=== PATIENT | male | born 1995 | race Two or more races ===

== ENCOUNTER 2022-08-30 05:27 | Emergency (ER) | payer OTHER, SELFPAY ==
--- NOTE | ~2022-08-30 | XR_ITS ---
EXAMINATION: XR HAND, LEFT CLINICAL INFORMATION: Pain in second finger COMPARISON: None TECHNIQUE: PA, lateral, and oblique views of the left hand. FINDINGS: There is linear calcification adjacent to the distal metadiaphysis of proximal phalanx of second finger on the ulnar side, measured approximately 0.4 cm long possibly related to an avulsion fragment of indeterminate age versus foreign body. There is mild focal soft tissue edema. The rest of bones and soft tissues are normal. No fracture. Alignment is anatomic. Joint spaces are maintained. No erosions or soft tissue calcifications. XR/XR hand LT 2V IMPRESSION: Questionably foreign body versus avulsion fragment adjacent to the distal metadiaphysis of proximal phalanx of second finger
[2022-08-30 06:01] VITALS: BP 125/68; PULSE 75; RESP 18; TEMP 36.4; O2SAT 100; BMI 20.7
--- NOTE | 2022-08-30 09:27 | ED_ITS ---
HPI - Extremity Problem General Chief complaint: Extremity Injury, Upper Stated complaint: finger inj/pain Time Seen by Provider: 08/30/22 08:31 Source: patient Mode of arrival: ambulatory Limitations: no limitations History of Present Illness HPI Narrative: 27-year-old male presenting to the ER with complaints of left index finger pain that he noticed today reports that he cannot completely straighten it. He re ports that he does not recall any injury. He does cracked his fingers often. He reports he does not work. He denies any paresthesias. He denies any edema or fevers or any other symptoms complaints or concerns at this time. MD Complaint: joint swelling and joint pain Onset (ago): day(s) (Started today) Pain Consistency: constant Location: left (Index finger) Quality: aching Radiation: none Relieving factors: nothing Exacerbating factors: range of motion and palpation Associated symptoms: denies other symptoms Related Data Previous Rx's Medication Instructions Recorded acetaminophen 500 mg tablet 1,000 mg PO QID PRN fever or pain 08/30/22 (Tylenol Extra Strength) #14 tabs ibuprofen 800 mg tablet 800 mg PO Q8H PRN pain #14 tabs 08/30/22 tramadol 50 mg tablet 50 mg PO Q8H PRN pain #14 tabs 08/30/22 Allergies Allergy/AdvReac Type Severity Reaction Status Date / Time No Known Allergies Allergy Unverified 07/24/20 16:13 Review of Systems Review of Systems: Constitutional : No Weight loss, No Fever, No Chills, No Night Sweats, No Fatigue, No Malaise ENT/Mouth : No Hearing loss, No Ear Pain, No Nasal Congestion, No Sinus Pain, No Hoarseness, No sore throat, No Rhinorrhea, No Swallowing Difficulty Eyes: No Eye Pain, No Swelling, No Redness, No Foreign Body, No Discharge, No Vision Changes Cardiovascular : No Chest Pain, No SOB, No Dyspnea on Exertion, No Orthopnea, No Edema, No Palpitations Respiratory : No Cough, No Sputum, No Wheezing, No Smoke Exposure, No Dyspnea Gastrointestinal : No Nausea, No Vomiting, No Diarrhea, No Constipation, No abdominal Pain, No Hematochezia, No Melena Genitourinary : no irregular bleeding, No Dysuria, No Urinary Frequency, No Hematuria, No Urinary Incontinence, No Urgency, No Flank Pain, No Urinary Flow Changes, No Hesitancy Musculoskeletal : + left index finger joint pain/swelling, No Myalgias Skin : No Skin Lesions, No rash Neuro : No Weakness, No Numbness, No Paresthesias, No Loss of Consciousness, No Dizziness, No Headache Psych : No Anxiety/Panic, No Depression, No SI/HI/AH/VH, No Social Issues, Heme/Lymph: No Bruising, No Bleeding,No Lymphadenopathy Endocrine : No Polyuria, No Polydipsia, No Temperature Intolerance Yes all other systems are reviewed and are negative [facility] Past Medical History Attestation statement: The following information was validated with the patient. Source: old records reviewed and nursing notes reviewed Social History Social History Advance Directives: No Advance Directives Information Provided: No Physical Exam Vital Signs: Vital Signs: Last Vital Signs Temp 97.5 F 08/30/22 06:01 Pulse 75 08/30/22 06:01 Resp 18 08/30/22 06:01 BP 125/68 08/30/22 06:01 Pulse Ox 100 08/30/22 06:01 O2 Del Method 08/30/22 06:01 BMI result Body Mass Index 20.7 vital signs have been reviewed as normal and appeared to be correct. Blood pressure normal Heart rate normal. Respiration rate normal. Temperature normal. Oxygen saturation normal. Appearance: Alert. Oriented X3. No acute distress. Head: Normal external exam. Normocephalic. Atraumatic. Eyes: PERRLA. EOMI. Conjunctiva and sclera normal. Eyelids normal. ENT: Pharynx normal. Uvula midline. Moist mucous membranes. Neck: Normal inspection. Neck supple. FROM. CVS: Normal heart rate and rhythm. Respiratory: No respiratory distress. Painless inspiration. Skin: Skin warm and dry. Normal skin color. Normal skin turgor. No rashes/lesions/lacerations noted. Extremities: To left hand index finger at the PIP patient has soft tissue swelling and tenderness palpation with limited range of motion although no ob vious ligamentous or tendon injury noted. He is able to flex and extend the finger. Otherwise all other extremities edema normal range of motion nontender. Neuro: Oriented X 3. No motor deficit. No sensory deficit. Reflexes normal. Normal steady gait. No focal neuro deficits noted. Vascular: + radial pulses/+ 2 distal pedal pulses/+2 dorsalis pedis b/l. Normal cap refill. No cyanosis noted to upper extremity nails and lower extremity toes nails. Course Course Course Narrative: X-ray obtained revealed possible avulsion fracture versus foreign body. When I reviewed the x-ray it appears like a possible avulsion fracture. Patient denies any recent injuries or recent falls therefore foreign body on likely. Will place in a finger splint treat symptomatic and instructed follow-up with orthopedics and PCP as needed. Patient understands agrees with this plan. MDM - Extremity (Nontraumatic) Medical Records Attestation: I reviewed the patient's medical records. Discharge Plan Discharge Clinical Impression: Closed fracture of phalanx of left index finger Patient Disposition: Home, Self-Care Instructions: Finger Fracture (ED) Prescriptions: New tramadol 50 mg tablet 50 mg PO Q8H PRN (Reason: pain) Qty: 14 0RF Rx Instructions: May partially fill upon patient request ibuprofen 800 mg tablet 800 mg PO Q8H PRN (Reason: pain) Qty: 14 0RF acetaminophen [Tylenol Extra Strength] 500 mg tablet 1,000 mg PO QID PRN (Reason: fever or pain) Qty: 14 0RF Referrals: [facility] [place] [facility] [Provider Group] (Call to make a follow-up appointment within the next few weeks for further evaluation treatment) Physician,Panda J [Primary Care Provider] - (Follow-up with your PCP within 1 week for further evaluation treatment)
--- NOTE | 2022-08-30 10:10 | PC.NURSE ---
PT EVALUATED BY PROVIDER. RESULTS OF XRAYS DISCUSSED WITH PATIENT BY AUSTEN DOSS. SPLINT APPLIED BY PA. PT TOLERATED WITHOUT INCIDENT. +[facility]. PLAN IS FOR DC HOME. PT AGREEABLE
== END 2022-08-30 10:12 | disposition home or self-care (01) ==
PROVIDERS: Emergency Provider Emergency Medicine
DX: S62.611A Displaced fracture of proximal phalanx of left index finger, initial encounter for closed fracture (principal); X58.XXXA Exposure to other specified factors, initial encounter; Y93.9 Activity, unspecified; Y92.9 Unspecified place or not applicable; Y99.9 Unspecified external cause status
CPT/HCPCS: 29130; 73120; 99283

== ENCOUNTER → 2022-09-08 11:27 | Outpatient (BNVA) | payer OTHER, SELFPAY | PROVIDERS: Visit Provider Physician Assistant | DX: M25.642 Stiffness of left hand, not elsewhere classified (principal) | CPT/HCPCS: 99202 ==

== ENCOUNTER → 2022-10-13 12:22 | Outpatient (BNVA) | payer OTHER, SELFPAY | PROVIDERS: Visit Provider Physician Assistant | DX: M25.642 Stiffness of left hand, not elsewhere classified (principal) | CPT/HCPCS: 99212 ==